=== PATIENT | female | born 1965 | race Caucasian/White ===

== ENCOUNTER → 2016-06-20 | Day surgery (SDC) | payer OTHER ==
[~2016-06-20] VITALS: Ht 170.2 cm; Wt 68.0 kg
[~2016-06-20] MED LIST: AMBIEN10 M1 PO; CIPROFLOXACIN500 M2 PO; DILAUDID2 M1 PO; DILAUDID2 MG PO; FLOMAX0.4 M1 PO; OXYCODONE-ACET1 EACH PO; ZOFRAN 2MG/4 MG/2 ML PO; ZOLPIDEM TART6.25 M1 PO
--- NOTE | 2016-06-20 19:30 | Operative Report ---
Operative/Inv Procedure Report Surgery Date: 06/20/16 Name of Procedure: CYSTOSCOPY: LEFT URETEROSCOPY, LASER LITHO OF URETER STONES, DILATATION OF LEFT MID-URETER STRICTURE: STENT PLACEMENT: RETROGRADE PYELOGRAM Pre-Operative Diagnosis: SEVERE LEFT HYDRO/COLIC: Post-Operative Diagnosis: LEFT URETER STRICTURE AND STONES. Estimated Blood Loss: scant Surgeon/Venetian Blind Tape Cutter: DEISI REYES MD Anesthesia: laryngeal mask airway Specimens: LEFT URETER STONES Complications: NONE Operative/Procedure Note Note: The patient was taken to the operating room and placed on the OR table in supine position. With the patient awake, timeout was performed in order to confirm; correct patient, correct procedure, as well as correct laterality, and other pertinent darwin-operative information. After adequate anesthesia and antibiotics , the patient was then placed lithotomy stirrups, draped and prepped in the usual surgical fashion. A 22 Persian cystoscope sheath with 30 angle lens was inserted into the bladder without difficulty. Upon entering the bladder, the bladder was noted to be free of tumor free of stone. Both orifices were in their orthotopic position. The left ureter orifice was intubated with an 8fr cone-tip catheter and a retrograde pyelogram with fluoroscopy was performed. An 8 mm left mid-ureter filling defect c/w stone was visualized, as well as, left proximal hydronephrosis. The cone-tipped catheter was removed, followed by insertion of a 0.035 Glidewire, which was advanced into the left renal pelvis without difficulty, and placement confirmed on fluoroscopy. Leaving the Glidewire in place, using a rigid Micro-6 ureteroscope, the bladder was then re- entered under direct visualization. The left ureter orifice was clearly visible and wide open. The ureteroscope was ealily advanced/inserted into the open ureter under direct visualization. The ureteroscope was advanced easily and gently into the mid-ureter, where a stricture was noted with edema. A large ureteral stone 8mm in size, was visualized. Under direct visualization the 400 laser fiber in direct contact with the stone, laser lithotripsy was performed in order to pulverize the stone into multiple tiny fragments. The fragments were all extracted and sent to pathology for analysis. At this point, the ureteroscope was then gently advanced into the left renal pelvis without difficulty. No other stones, nor any tumor was visualized in the renal pelvis. However, given the US/KUB findings, the flexible ureteroscope was needed. the 0.035 gluide wire was instered through the ureteroscope and left in place as the rigid ureteroscope was removed. The entire length of the ureter was aslo visualize carefully on the way out with the ureteroscope, and the same findings of the mid-ureter stricture, no stones or tumor was confirmed. The flexible ureteroscope was then railroaded over the Glidewire into the left ureter and renal pelvis. Direct visualization the upper middle and lower calyces were explored noting chronic severe hydronephrotic changes to all calyces. In each calyx, there was stone formation beneath the transitional cell lining consistent with large Nilo's plaque. The laser was not used for these plaques, as well as risk of further renal injury is significant in treating these plaques. The flexible ureteroscope was then removed under direct visualization, again revealing the midureter stricture. The 22 Persian cystoscope sheath with a 30 angle lens was then reinserted into the bladder with the Glidewire back loaded into the scope. A 4.7 x 22 Bard [place] ureteral stent was inserted over the Glidewire. With the proximal coil advanced into the left renal pelvis confirmed on fluoroscopy, and the distal coil seen in the bladder cystoscopically, the Glidewire was removed and the stent remained in proper place. The bladder was then drained, and the cystoscope was removed. The patient tolerated the procedure well was then taken to the recovery room in satisfactory condition. The patient is to follow up in 1-2 weeks for stent removal. Findings: LARGE LEFT URETER STONE PROXIMAL TO MID-URETER STRICTURE: CHRONIC DILATED LEFT RENAL PELVIS/CALYXES Discharge Disposition: PACU CC: DEISI REYES MD
--- NOTE | 2016-06-21 06:54 | RADIOLOGY REPORT ---
EXAMINATION: INTRAOPERATIVE FLUOROSCOPIC GUIDANCE AND ABDOMEN CLINICAL INFORMATION: Nephrolithiasis. Ureteroscopy. COMPARISON: 06/18/2016. TECHNIQUE: Fluoroscopic time was utilized in the OR for Dr. Cunningham. Fluoroscopic images were obtained in the AP projection. FINDINGS: Fluoroscopic guidance was provided during left ureteroscopy. On the images provided, narrowing to the distal left ureter is identified following contrast administration. FLUOROSCOPY TIME: 36 seconds of fluoroscopic time was utilized for the entirety of this examination. IMPRESSION: Fluoroscopic guidance was provided during left ureteroscopy. On the images provided, narrowing to the distal left ureter is identified following contrast administration.
== END ==
LOC: STS 07:00
DX: N13.2 Hydronephrosis with renal and ureteral calculous obstruction (principal); N13.1 Hydronephrosis with ureteral stricture, not elsewhere classified; N28.89 Other specified disorders of kidney and ureter
CPT/HCPCS: 74000; 82355; C2617; J0131; J0690; J1100; J2250; J2405

== ENCOUNTER → 2016-10-22 | Day surgery (SDC) | payer OTHER ==
[~2016-10-22] VITALS: Ht 170.2 cm; Wt 59.0 kg
--- NOTE | 2016-10-22 16:41 | Operative Report ---
Operative/Inv Procedure Report Surgery Date: 10/22/16 Name of Procedure: right renal ESWL. fluroroscopy Pre-Operative Diagnosis: bilateral renal stones Post-Operative Diagnosis: same Estimated Blood Loss: none Surgeon/Rougher For Cement: DEISI REYES MD Anesthesia: moderate sedation Drains: none Specimens: none Complications: none Operative/Procedure Note Note: The patient was taken to the operating room placed on the OR table in supine position. Timeout was performed, with the patient awake, in order to confirm correct procedure, laterality, anesthesia, and other pertinent perioperative information. After adequate anesthesia and antibiotics, the patient was then positioned over the ESWL table cutout overlying the treatment dome. Fluoroscopy , using AP and oblique views, as well as renal ultrasound, or performed in order to locate the 2cm right upper pole stone. The position of the stone was optimized, and positioned in the middle of the ESWL crosshairs. The stone was measured to be approximately 20 mm in size. ESWL was initiated at low power, and after 200 shockwaves delivered, noting the patient's tolerance to the shockwaves, the power was increased to maximum. At the end of 2500 shockwaves, fluoroscopy confirms the change in consistency of the stone, indicating shattering of the stone. The patient tolerated the procedures well, and was taken to the recovery room in satisfactory condition. The patient is discharged home with pain medication, and follow-up instructions with in 2-3 weeks' time. Findings: large 2cm right upper pole stone Discharge Disposition: PACU CC: DEISI REYES MD
== END ==
LOC: STS 03:41
DX: N20.0 Calculus of kidney (principal); Z87.442 Personal history of urinary calculi
CPT/HCPCS: J2250

== ENCOUNTER → 2018-03-05 | Day surgery (SDC) | payer OTHER ==
[~2018-03-05] VITALS: Ht 170.2 cm; Wt 59.0 kg
[~2018-03-05] MED LIST changes: +AMITRIPTYLINE H10 M2 PO
--- NOTE | 2018-03-05 17:48 | Operative Report ---
Operative/Inv Procedure Report Surgery Date: 03/05/18 Name of Procedure: cystoscopy: right ureteroscopy with LASER fulguration of right renal pelvis stone. Retrograde pyelogram, right stent insertion. Pre-Operative Diagnosis: right renal pelvis stone with colic Post-Operative Diagnosis: same Estimated Blood Loss: scant Surgeon/Metal Bench Patternmaker: Timmy Cnuningham MD Anesthesia: laryngeal mask airway Drains: none Specimens: right stone fragment Complications: none Operative/Procedure Note Note: The patient was taken to the operating room and placed on the OR table in supine position. Timeout was performed, with the patient awake, in order to confirm correct patient, procedure, laterality, anesthesia, and other pertinent information. After adequate anesthesia and antibiotics, the patient was then placed in lithotomy stirrups, draped and prepped in the usual surgical fashion. A 22 Latvian cystoscope sheath with 30 angle lens was inserted into the bladder without difficulty. Upon entering the bladder, the bladder was noted to be free of stone. Both ureteral orifices were in their orthotopic position, with clear efflux bilaterally. The right ureter orifice was intubated with an 8fr tiger-tail catheter, and a retrograde pyelogram with fluoroscopy was performed revealing the findings noted (severe hydro.). The tiger-tail catheter was removed, followed by insertion of a 0.035 Glidewire, which was advanced into the right renal pelvis without difficulty. Correct placement of the wire was confirmed on fluoroscopy. The cystoscope was removed, leaving the Glidewire in place. Using the gluidewire as a guide, a flexible digital ureteroscope, was railroaded over the gluidewire, into the right ureter at the level of the obstructing stone. The Glidewire was removed, and the 375 um fiber was insterted into the ureteroscope. With the laser fiber in direct contact with the large 15 mm stone at right renal pelvis, the laser lithotripsy was performed in order to pulverize the stone into multiple tiny fragments. During the laser firing, fragments of the stone continued to damage the tip of the laser requiring multiple re-sizing and stripping. After multiple disruptions, I switched to the 500mm fiber with much better lythotrypsy results of the entire stone. The fragments were flushed out and sent to pathology for analysis. Having completely pulverized the renal stone, the ureteroscope was then withdrawn slowly, revealing no tumor, and no stone, along the entire length of the ureter. The 22 Latvian cystoscope sheath with a 30 angle lens was then reinserted into the bladder. The right orifice was then intubated with a 0.035 Glidewire, which was advanced into the right renal pelvis without difficulty. A 6 x 22 Cook rubber stent was railroaded over the Glidewire, and advanced into the right renal pelvis without difficulty. The Glidewire was removed, and the stent remained in proper place confirmed by fluoroscopy, and cystoscopy. All sponge needle and instrument count were correct at the end of the case. The patient tolerated the procedure well, and was then taken to the recovery room in satisfactory condition. She is to follow up in 2-4 weeks for POC/follow-up. Discharge Disposition: PACU CC: Timmy Cunningham MD
--- NOTE | 2018-03-07 11:13 | RADIOLOGY REPORT ---
EXAMINATION: XR URETEROSCOPY OR CLINICAL INFORMATION: Laser treatment right kidney stone COMPARISON: KUB, 02/27/2018 TECHNIQUE: Intraoperative C-arm fluoroscopic imaging was required during right ureteroscopy, laser treatment and ureteral stent placement. Number of saved images: 31. Fluoroscopy time: 2 minutes, 2.8 seconds. Dose: 2.7 rad FINDINGS: Again noted are the right renal calculi. Fluoroscopic imaging was utilized by Dr. Cunningham during lithotripsy of the upper pole calculus. A right ureteral stent was deployed. Please refer to the operative report. IMPRESSION: Fluoroscopic imaging equipment was provided to the operating room for urologic procedures. Please refer to the operative report.
== END ==
LOC: STS 02:18
DX: N13.2 Hydronephrosis with renal and ureteral calculous obstruction (principal)
CPT/HCPCS: 76000; 82355; J0131; J2250